=== PATIENT | male | born 1965 | race Caucasian/White ===

== ENCOUNTER 2022-10-13 22:47 | Inpatient (IN) ==
[2022-10-13] MEDS ORDERED: IPRATROPIUM/ALBUTEROL 3 ML AMPUL.NEB NEB ONE (23:03)
[2022-10-13] MEDS ORDERED: ALBUTEROL SULFATE 2.5 MG/3 ML NEBULIZER NEB ONE (23:03)
--- NOTE | 2022-10-13 23:07 | Emergency Department Note ---
HPI General Chief complaint: Shortness of Breath/Dyspnea Stated complaint: COPD exacerbation Time Seen by Provider: 10/13/22 23:03 Mode of arrival: ambulatory History of Present Illness HPI Narrative: Narrative: Patient is a 57-year-old male with a history significant for COPD, type 2 diabetes, and CHF who presents to the emergency department due to shortness of breath. EMS states that they gave 3 DuoNeb's without any significant improvement. Patient states that he feels that he may have had mild improvement with this. He states that he noticed the most improvement with CPAP. He states that he has had increasing shortness of breath over the last few days. He endorses worsening shortness of breath with activity, lying flat, and states that he wakes up feeling short of breath. He endorses cough. He denies any other symptoms at this time. Related Data Home Medications Medication Instructions Recorded Confirmed aspirin 81 mg tablet,delayed 81 mg PO QDAY 10/04/20 07/24/22 release (Adult Low Dose Aspirin) buspirone 5 mg tablet 5 mg PO BID 10/04/20 07/24/22 ezetimibe 10 mg tablet 10 mg PO QDAY 10/04/20 07/24/22 fluticasone 500 mcg-salmeterol 50 1 inh inhalation BID 10/04/20 07/24/22 mcg/dose blistr powdr for inhalation (Advair Diskus) lisinopril 20 mg tablet 20 mg PO QDAY 10/04/20 07/24/22 metoprolol tartrate 25 mg tablet 25 mg PO QDAY 10/04/20 07/24/22 nitroglycerin 0.4 mg sublingual 0.4 mg sublingual Q5M PRN 10/04/20 07/24/22 tablet (Nitrostat) allopurinol 300 mg tablet 300 mg PO QDAY 12/22/21 07/24/22 atorvastatin 80 mg tablet 80 mg PO QDAY 12/22/21 07/24/22 chlorthalidone 25 mg tablet 25 mg PO QDAY 12/22/21 07/24/22 famotidine 20 mg tablet 20 mg PO BID 12/22/21 07/24/22 latanoprost 0.005 % eye drops 1 drp ophthalmic (eye) QDAY 12/22/21 07/24/22 potassium chloride 10 mEq 10 meq PO QDAY 12/22/21 07/24/22 tablet,extended release sertraline 200 mg capsule 200 mg PO QDAY 12/22/21 07/24/22 timolol 0.5 % eye drops 1 drp ophthalmic (eye) BID 12/22/21 07/24/22 albuterol sulfate 90 mcg/actuation 2 puff inhalation Q6H PRN 05/29/22 07/24/22 aerosol inhaler furosemide 20 mg tablet 40 mg PO QDAY 05/29/22 07/24/22 gabapentin 300 mg capsule 300 mg PO BID 05/29/22 07/24/22 lisinopril 40 mg tablet 40 mg PO QDAY 05/29/22 07/24/22 metformin 500 mg tablet,extended 1,000 mg PO BID 05/29/22 07/24/22 release 24hr metoprolol succinate 50 mg 25 mg PO QDAY 05/29/22 07/24/22 tablet,extended release 24 hr multivitamin 1 tab PO QDAY 05/29/22 07/24/22 omeprazole 20 mg capsule,delayed 20 mg PO QDAY 05/29/22 07/24/22 release sertraline 100 mg tablet 200 mg PO QDAY 05/29/22 07/24/22 tamsulosin 0.4 mg capsule 0.4 mg PO QAM 05/29/22 07/24/22 cholestyramine-aspartame 4 gram PO 07/03/22 07/24/22 oral powder (Cholestyramine Light) liraglutide 0.6 mg/0.1 mL (18 mg/3 mg subcut 07/03/22 07/24/22 mL) subcutaneous pen injector (Victoza 3-Thomas) Allergies Allergy/AdvReac Type Severity Reaction Status Date / Time Influenza Virus Vaccines Allergy Hives Verified 07/24/22 16:52 Review of Systems ROS ROS Narrative: Narrative: Constitutional: Denies fever or weakness Eyes: Denies eye pain or vision change ENT ED: Reports rhinorrhea; Denies throat pain Cardiovascular: Reports dyspnea on exertion, orthopnea and edema; Denies chest pain Respiratory: Reports shortness of breath and cough Gastrointestinal: Denies abdominal pain, nausea, vomiting, diarrhea, constipation, hematochezia or melena Genitourinary: Denies dysuria or frequency Musculoskeletal: Denies back pain or myalgia Integumentary: Denies rash or lesions Neurological: Denies headache, weakness, numbness, confusion, abnormal gait or dizziness Endocrine: Denies fatigue or polyuria Hematological/Lymphatic: Denies easy bleeding or easy bruising PFS Narrative Patient History Narrative: Narrative: Medical/Surgical/Family History All Active Problems (Updated 10/14/22 @ 02:33 by Harpreet Jang MD) CHF exacerbation (Acute) COPD exacerbation (Acute) Nephrotic range proteinuria (Chronic) Restrictive lung disease (Chronic) Hypersomnia (Chronic) Mild mitral valve regurgitation (Chronic) 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) Body mass index exceeds 40 (Chronic) Hyperglycemia (Chronic) Edema of lower extremity (Chronic) Collagenous colitis (Chronic) Ascending aorta dilatation (Chronic) 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) Coronary arteriosclerosis (Chronic) LINDSEY (obstructive sleep apnea) (Chronic) Right wrist pain (Chronic) Cyst of kidney, acquired (Chronic) Sleep apnea (Chronic) Lesion of skin of face (Chronic) Periapical abscess (Chronic) Bradycardia (Chronic) Recent myocardial infarction (Chronic) Essential hypertension (Chronic) Bilateral hearing loss (Chronic) Eczema of external auditory canal (Chronic) Carpal tunnel syndrome (Chronic) Tobacco dependence syndrome (Chronic) Seasonal affective disorder (Chronic) Gout (Chronic) Hyperlipidemia (Chronic) Candidiasis (Chronic) Onychomycosis (Chronic) Cervical spondylosis (Chronic) History of surgery (Chronic) Heart disease (Chronic) Obesity (Chronic) COPD (chronic obstructive pulmonary disease) (Chronic) Metabolic syndrome (Chronic) GERD (gastroesophageal reflux disease) (Chronic) Depression (Chronic) Presence of coronary angioplasty implant and graft (Chronic) Old myocardial infarction (Chronic ~12/2013) Low back pain (Chronic) Pain in left leg (Chronic) Chronic pain (Chronic) Radiculopathy, lumbar region (Chronic) Carbuncle and furuncle (Chronic) Chronic low back pain (Chronic) Sciatica (Chronic) Medical History (Updated 10/14/22 @ 02:33 by Harpreet Jang MD) Ascending aorta dilatation Bilateral hearing loss Body mass index exceeds 40 Bradycardia Candidiasis Carbuncle and furuncle Carpal tunnel syndrome Cervical spondylosis Chronic combined systolic and diastolic heart failure Chronic low back pain Chronic pain Collagenous colitis COPD (chronic obstructive pulmonary disease) Coronary arteriosclerosis Cyst of kidney, acquired Depression Dyslipidemia due to type 2 diabetes mellitus Eczema of external auditory canal Edema of lower extremity Essential hypertension GERD (gastroesophageal reflux disease) Gout Heart disease Hyperglycemia Hyperlipidemia Hypersomnia Lesion of skin of face Low back pain Metabolic syndrome Mild mitral valve regurgitation Nephrotic range proteinuria Obesity Old myocardial infarction (~12/2013) Onychomycosis LINDSEY (obstructive sleep apnea) Pain in left leg Periapical abscess Radiculopathy, lumbar region Recent myocardial infarction Restrictive lung disease Right wrist pain Sciatica Seasonal affective disorder Sleep apnea Tobacco dependence syndrome Surgical History (Updated 10/01/22 @ 13:41 by Josiane Kennedy) History of cardiac catheterization History of carpal tunnel surgery (11/28/20) History of heart artery stent x2 History of surgery TF JIMBO #3 Lt L4-5 w/o sed 04/09/1802/26 TF JIMBO #2 Lt L4-5 w/o sed 02/12/1812/29 TF JIMBO #1 Left L4-5 w/o sed 12/19/1708/27 TF JIMBO #3 Lt L4-5 w/o sed 08/28/1707/28 TF JIMBO #2 Left L4-5 w/o sed 08/08/201706/27 TF JIMBO #1 Left L4-5 w/o sed 06/17/201702/25 TF JIMBO #3 L4-5, left 6\\" needle w/o sed 02/11/201712/28 LESI #2 L4-5 w/o sed 12/31/201611/27 LESI #1 L4-5 w/o sed 12/10/2016 Presence of coronary angioplasty implant and graft Family History (Updated 10/01/22 @ 13:35 by Josiane Kennedy) Other Adopted No pertinent family history Social History Smoking Status: Current every day smoker Alcohol Intake Frequency: holiday/special occasion only Substance Use: does not use Exam Narrative Narrative: Narrative: General General appearance: Present alert and in no apparent distress; Absent anxious, appears intoxicated or sleepy Head Head: Present atraumatic and normocephalic Eye Eye: Present EOMI; Absent scleral icterus or nystagmus ENT ENT: Present mucous membranes moist; Absent nasal congestion Neck Neck: Present full ROM; Absent tenderness Chest Chest: Present normal inspection and symmetric chest wall rise; Absent tenderness Respiratory Respiratory: Present decreased breath sounds; Absent respiratory distress, ral es/crackles, wheezes, stridor or accessory muscle use Cardiovascular Cardiovascular: Present regular rate, normal rhythm and normal heart sounds Adbominal Abdominal: Present soft and normal bowel sounds; Absent distention or tenderness Extremities Extremities: Present normal inspection, full ROM, pedal edema and pretibial edema; Absent tenderness or calf tenderness Back Back: Present normal inspection and full ROM Neurological Neurological: Present alert and oriented X3 Psychiatric Psychiatric: Present normal affect and normal mood Skin Skin: Present warm (WNL), dry and normal color Course Vital Signs Vital signs: Vital Signs Temperature 98.0 F 10/13/22 23:09 Pulse Rate 65 10/13/22 23:09 Respiratory Rate 97 H 10/13/22 23:09 Blood Pressure 177/90 10/13/22 23:09 Pulse Oximetry (%) 97 10/13/22 23:09 Oxygen Delivery Method 10/13/22 23:09 Temperature 98.0 F 10/13/22 23:09 Pulse Rate 63 10/14/22 02:01 Respiratory Rate 18 10/14/22 02:01 Blood Pressure 154/115 10/14/22 02:01 Pulse Oximetry (%) 91 10/14/22 02:01 Oxygen Delivery Method 10/13/22 23:09 MDM MDM Narrative Medical decision making narrative: Narrative: Patient is a 57-year-old male who presents to the emergency department due to shortness of breath. Differential diagnoses include COPD exacerbation, CHF exacerbation, pneumonia, COVID-19 or influenza, other viral infection. Patient's influenza and COVID swab is negative. Chest x-ray demonstrates pulmonary edema concerning for CHF exacerbation. Patient's decrease in breath sounds at the bases are consistent with this or COPD exacerbation. Patient did receive a prolonged DuoNeb, and did have some improvement with this consistent with COPD exacerbation. Patient has received antibiotics and steroid. Patient is also received Lasix. Patient was placed on BiPAP immediately upon arrival to the emergency department, but we soon after trialed nasal cannula, patient began to have increased work of breathing and borderline O2 sats. BiPAP was replaced, but after prolonged DuoNeb we again trialed nasal cannula. Patient was unable to tolerate laying down, but wanted to continue to try nasal cannula. I suspect the patient will again require BiPAP when he tries to sleep overnight. I spoke to Dr. Cheung about this patient and he agreed with an admission. ED transition orders have been placed. Lab Data Result diagrams: 10/13/22 23:30 Labs: Lab Results 10/13/22 10/13/22 10/13/22 Range/Units 23:07 23:08 23:14 WBC (4.5-11.0) K/mcL RBC (4.63-6.08) M/mcL Hgb (13.7-17.5) g/dL Hct (40.1-51.0) % POC Hct 44.0 (41-55) MCV (80.0-100.0) fL MCH (26.0-34.0) pg MCHC (31.0-36.0) g/dL RDW (11.5-14.5) % Plt Count (140-440) K/mcL MPV (8.8-12.5) fL Immature Gran % (Auto) (0.0-0.5) % Neut % (Auto) (38.0-78.0) % Lymph % (Auto) (15.5-49.0) % [place] % (Auto) (1.0-12.0) % Eos % (Auto) (0.0-7.0) % Baso % (Auto) (0.0-2.0) % Lymph # (Auto) (1.50-4.80) K/mcL [place] # (Auto) (0.10-0.90) K/mcL Eos # (Auto) (0.00-0.70) K/mcL Baso # (Auto) (0.00-0.30) K/mcL Immature Gran # (0.00-0.05) K/mcl Absolute Neutrophils (1.80-8.00) K/mcL POC VBG pH 7.37 (7.32-7.42) POC VBG pCO2 at Temp 52.1 H (41-51) POC VBG pO2 71 H (25-40) POC VBG HCO3 30.3 H (24-28) POC VBG Total CO2 32.0 H (25-29) POC Venous O2 Sat 93.0 H (40-70) POC VBG Base Excess 5.0 H* (-2-2) VBG Lactic Acid 0.8 (0.5-2) POC Sodium 141 (133-145) POC Potassium 3.5 (3.3-5.1) POC Chloride 103 (96-108) POC Total CO2 30.0 (22-30) POC BUN 13 (6-20) POC Creatinine 1.1 (0.6-1.2) POC Glucose 94 (70-105) POC WB Ioniz Calcium 1.16 (1.16-1.32) NT-Pro-B Natriuret Pep (<125.0) pg/mL POC Troponin I < 0.02 (0.00-0.08) 10/13/22 10/13/22 Range/Units 23:30 23:46 WBC 7.8 (4.5-11.0) K/mcL RBC 4.68 (4.63-6.08) M/mcL Hgb 14.4 (13.7-17.5) g/dL Hct 43.0 (40.1-51.0) % POC Hct (41-55) MCV 91.9 (80.0-100.0) fL MCH 30.8 (26.0-34.0) pg MCHC 33.5 (31.0-36.0) g/dL RDW 14.4 (11.5-14.5) % Plt Count 178 (140-440) K/mcL MPV 12.8 H (8.8-12.5) fL Immature Gran % (Auto) 0.3 (0.0-0.5) % Neut % (Auto) 65.6 (38.0-78.0) % Lymph % (Auto) 22.4 (15.5-49.0) % [place] % (Auto) 7.3 (1.0-12.0) % Eos % (Auto) 3.8 (0.0-7.0) % Baso % (Auto) 0.6 (0.0-2.0) % Lymph # (Auto) 1.76 (1.50-4.80) K/mcL [place] # (Auto) 0.57 (0.10-0.90) K/mcL Eos # (Auto) 0.30 (0.00-0.70) K/mcL Baso # (Auto) 0.05 (0.00-0.30) K/mcL Immature Gran # 0.02 (0.00-0.05) K/mcl Absolute Neutrophils 5.14 (1.80-8.00) K/mcL POC VBG pH (7.32-7.42) POC VBG pCO2 at Temp (41-51) POC VBG pO2 (25-40) POC VBG HCO3 (24-28) POC VBG Total CO2 (25-29) POC Venous O2 Sat (40-70) POC VBG Base Excess (-2-2) VBG Lactic Acid (0.5-2) POC Sodium (133-145) POC Potassium (3.3-5.1) POC Chloride (96-108) POC Total CO2 (22-30) POC BUN (6-20) POC Creatinine (0.6-1.2) POC Glucose (70-105) POC WB Ioniz Calcium (1.16-1.32) NT-Pro-B Natriuret Pep 924.9 H (<125.0) pg/mL POC Troponin I (0.00-0.08) ED POC Tests ED POC Tests: LUCRETIA - Influenza A Negative [place]IA - Influenza B Negative [place] - SARS Antigen Negative EKG Data EKG #1: EKG attestation: Yes I reviewed and interpreted this EKG. EKG results narrative: Normal sinus rhythm with a rate of 62, left axis deviation, AK 196, QRS of 123, QTc of 497, T wave inversion in lead aVL, absence of ST elevation or depression, and multiple PVCs. Discharge Plan Patient/Caregiver Discharge Instructions Pt seen by BOAT TESTER/PA only: No Clinical Impression: CHF exacerbation, COPD exacerbation Patient Disposition: Xfer As Inpt ([facility]) Condition: Critical Follow up with: Samira Mancia PA-C [Primary Care Provider] - Prescriptions: No Action ezetimibe 10 mg tablet 10 mg PO QDAY lisinopril 20 mg tablet 20 mg PO QDAY aspirin [Adult Low Dose Aspirin] 81 mg tablet,delayed release (DR/EC) 81 mg PO QDAY metoprolol tartrate 25 mg tablet 25 mg PO QDAY buspirone 5 mg tablet 5 mg PO BID fluticasone propion-salmeterol [Advair Diskus] 500-50 mcg/dose blister with device 1 inh INHALATION BID nitroglycerin [Nitrostat] 0.4 mg tablet, sublingual 0.4 mg SUBLINGUAL Q5M PRN Rx Instructions: do not exceed 3 doses per episode albuterol sulfate 90 mcg/actuation HFA aerosol inhaler 2 puff inhalation Q6H PRN gabapentin 300 mg capsule 300 mg PO BID lisinopril 40 mg tablet 40 mg PO QDAY metoprolol succinate 50 mg tablet extended release 24 hr 25 mg PO QDAY multivitamin Tablet 1 tab PO QDAY omeprazole 20 mg capsule,delayed release(DR/EC) 20 mg PO QDAY sertraline 100 mg tablet 200 mg PO QDAY allopurinol 300 mg tablet 300 mg PO QDAY atorvastatin 80 mg tablet 80 mg PO QDAY chlorthalidone 25 mg tablet 25 mg PO QDAY famotidine 20 mg tablet 20 mg PO BID latanoprost 0.005 % drops 1 drp ophthalmic (eye) QDAY potassium chloride 10 mEq tablet extended release 10 meq PO QDAY sertraline 200 mg capsule 200 mg PO QDAY timolol 0.5 % drops 1 drp ophthalmic (eye) BID furosemide 20 mg tablet 40 mg PO QDAY metformin 500 mg tablet extended release 24hr 1,000 mg PO BID tamsulosin 0.4 mg capsule 0.4 mg PO QAM Cholestyramine Light 4 gram powder PO Victoza 3-Thomas 0.6 mg/0.1 mL (18 mg/3 mL) pen injector subcut
[2022-10-13 23:12] LABS: POC Calcium, Ionized 1.16 (1.16-1.32); POC Creatinine 1.1 (0.6-1.2); POC Potassium 3.5 (3.3-5.1)
[2022-10-13] MEDS ORDERED: DEXAMETHASONE 10 MG/ML VIAL IV ONE (23:15)
[2022-10-13] MEDS ORDERED: AZITHROMYCIN 500 MG in DEXTROSE 5% IN WATER 250 ML IV ONE (23:40)
[2022-10-13] MEDS ORDERED: cefTRIAXone 1 GM VIAL IV ONE (23:40)
[2022-10-14 00:26] LABS: Basophils # (Auto) 0.05 K/mcL (0.00-0.30); Basophils % (Auto) 0.6 % (0.0-2.0); Eosinophils % (Auto) 3.8 % (0.0-7.0); Hemoglobin 14.4 g/dL (13.7-17.5); Lymphocytes # (Auto) 1.76 K/mcL (1.50-4.80); Lymphocytes % (Auto) 22.4 % (15.5-49.0); Mean Cell Volume 91.9 fL (80.0-100.0); Mean Corpuscular HGB Conc 33.5 g/dL (31.0-36.0); Mean Platelet Volume 12.8 fL (8.8-12.5); Monocytes # (Auto) 0.57 K/mcL (0.10-0.90); Monocytes % (Auto) 7.3 % (1.0-12.0); Neutrophils % (Auto) 65.6 % (38.0-78.0); Platelet Count 178 K/mcL (140-440); RBC 4.68 M/mcL (4.63-6.08); Red Cell Distribution Width 14.4 % (11.5-14.5); WBC 7.8 K/mcL (4.5-11.0)
[2022-10-14] MEDS ORDERED: FUROSEMIDE 100 MG/10 ML VIAL IV ONE (01:27)
[2022-10-14] MEDS ORDERED: ONDANSETRON 4 MG/2 ML VIAL IV ONE (02:09)
--- NOTE | 2022-10-14 06:05 | XRay Report ---
INDICATION: SOB TECHNIQUE: AP portable upright chest x-ray COMPARISON: Previous chest x-ray dated 12/02/2013 FINDINGS: There is marked cardiomegaly and prominent vascularity. Peribronchial thickening. Appearance consistent with interstitial pulmonary edema. No focal pulmonary parenchymal consolidation. No focal abnormality. No definite pleural effusions identified on this AP chest x-ray IMPRESSION: Cardiomegaly and findings consistent with congestive heart failure Interpreted and Authenticated by: Trung Hale 10/14/22
--- NOTE | 2022-10-14 07:52 | Internal Med History&Physical ---
HPI History of Present Illness Patient information: Note initiated : 10/14/22 at 7:51 am Service Date, if different from initiated Date: [] Patient: Preston Wells a 57 y/o M admitted on 10/14/22 for COPD exacerbation. Chief Complaint: [] History of present illness: Mr. Wells is a 57 year old M Presents ED with dyspnea. By EMS is given duo nebs as well as duo nebs in the ED. Subsequently required CPAP BiPAP. Further work-up revealed the suspected CHF and that the patient was given IV Lasix. Patient reports increasing shortness of breath the past 3-4 days worsened by activities laying flat, orthopnea. Also describes paroxysmal nocturnal dyspnea. Denies any increased salt in his diet or sick contacts. Patient states his typical weight is around 395. Patient states he has cough productive of white sputum occasionally bloody sputum also frothy component. COVID swab was negative. Review of Systems: Pertinent positives as above. Denies headache/fever/chills/nausea/vomiting/chest or abdominal pain/diarrhea. 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) Coronary arteriosclerosis (Chronic) LINDSEY (obstructive sleep apnea) (Chronic) Right wrist pain (Chronic) Cyst of kidney, acquired (Chronic) Sleep apnea (Chronic) Lesion of skin of face (Chronic) Periapical abscess (Chronic) Bradycardia (Chronic) Recent myocardial infarction (Chronic) Essential hypertension (Chronic) Bilateral hearing loss (Chronic) Eczema of external auditory canal (Chronic) Carpal tunnel syndrome (Chronic) Tobacco dependence syndrome (Chronic) Seasonal affective disorder (Chronic) Gout (Chronic) Hyperlipidemia (Chronic) Candidiasis (Chronic) Onychomycosis (Chronic) Cervical spondylosis (Chronic) History of surgery (Chronic) Heart disease (Chronic) Obesity (Chronic) COPD (chronic obstructive pulmonary disease) (Chronic) Metabolic syndrome (Chronic) GERD (gastroesophageal reflux disease) (Chronic) Depression (Chronic) Presence of coronary angioplasty implant and graft (Chronic) Old myocardial infarction (Chronic ~12/2013) Low back pain (Chronic) Pain in left leg (Chronic) Chronic pain (Chronic) Radiculopathy, lumbar region (Chronic) Carbuncle and furuncle (Chronic) Chronic low back pain (Chronic) Sciatica (Chronic) Medical History (Updated 10/14/22 @ 02:33 by Harpreet Jang MD) Ascending aorta dilatation Bilateral hearing loss Body mass index exceeds 40 Bradycardia Candidiasis Carbuncle and furuncle Carpal tunnel syndrome Cervical spondylosis Chronic combined systolic and diastolic heart failure Chronic low back pain Chronic pain Collagenous colitis COPD (chronic obstructive pulmonary disease) Coronary arteriosclerosis Cyst of kidney, acquired Depression Dyslipidemia due to type 2 diabetes mellitus Eczema of external auditory canal Edema of lower extremity Essential hypertension GERD (gastroesophageal reflux disease) Gout Heart disease Hyperglycemia Hyperlipidemia Hypersomnia Lesion of skin of face Low back pain Metabolic syndrome Mild mitral valve regurgitation Nephrotic range proteinuria Obesity Old myocardial infarction (~12/2013) Onychomycosis LINDSEY (obstructive sleep apnea) Pain in left leg Periapical abscess Radiculopathy, lumbar region Recent myocardial infarction Restrictive lung disease Right wrist pain Sciatica Seasonal affective disorder Sleep apnea Tobacco dependence syndrome Surgical History (Updated 10/01/22 @ 13:41 by Josiane Kennedy) History of cardiac catheterization History of carpal tunnel surgery (11/28/20) History of heart artery stent x2 History of surgery TF JIMBO #3 Lt L4-5 w/o sed 04/09/1802/26 TF JIMBO #2 Lt L4-5 w/o sed 02/12/1812/29 TF JIMBO #1 Left L4-5 w/o sed 12/19/1708/27 TF JIMBO #3 Lt L4-5 w/o sed 08/28/1707/28 TF JIMBO #2 Left L4-5 w/o sed 08/08/201706/27 TF JIMBO #1 Left L4-5 w/o sed 06/17/201702/25 TF JIMBO #3 L4-5, left 6\\" needle w/o sed 02/11/201712/28 LESI #2 L4-5 w/o sed 12/31/201611/27 LESI #1 L4-5 w/o sed 12/10/2016 Presence of coronary angioplasty implant and graft Family History (Updated 10/01/22 @ 13:35 by Josiane Kennedy) Other Adopted No pertinent family history Social History (Updated 10/01/22 @ 13:38 by Josiane Kennedy) adopted: Yes household members: alone lives independently: Yes marital status: single occupational status: retired and disabled sexually active: No physical activity: none smoking status: Current some day smoker alcohol intake frequency: holiday/special occasion only substance use type: does not use seatbelt use: always working smoke detector in home: Yes carbon monox detector in home: Yes firearms in home: Yes additional history: patient smokes 1-1.5 ppd for around 40 years as of 06/2022 MEDS/ALLERGIES Home Medications and Allergies Home Medications Medication Instructions Recorded Confirmed Type buspirone 5 mg tablet 5 mg PO BID 10/04/20 10/14/22 History ezetimibe 10 mg tablet 10 mg PO QDAY 10/04/20 10/14/22 History fluticasone 500 mcg-salmeterol 50 1 inh inhalation BID 10/04/20 10/14/22 History mcg/dose blistr powdr for inhalation (Advair Diskus) nitroglycerin 0.4 mg sublingual 0.4 mg sublingual Q5M PRN 10/04/20 10/14/22 History tablet (Nitrostat) Shortness Of Breath allopurinol 300 mg tablet 300 mg PO QDAY 12/22/21 10/14/22 History atorvastatin 80 mg tablet 80 mg PO QDAY 12/22/21 10/14/22 History famotidine 20 mg tablet 20 mg PO BID 12/22/21 10/14/22 History latanoprost 0.005 % eye drops 1 drp ophthalmic (eye) QDAY 12/22/21 10/14/22 History potassium chloride 10 mEq 10 meq PO QDAY 12/22/21 10/14/22 History tablet,extended release timolol 0.5 % eye drops 1 drp ophthalmic (eye) BID 12/22/21 10/14/22 History albuterol sulfate 90 mcg/actuation 2 puff inhalation Q6H PRN 05/29/22 10/14/22 History aerosol inhaler Shortness of breath furosemide 20 mg tablet 40 mg PO QDAY 05/29/22 10/14/22 History gabapentin 300 mg capsule 300 mg PO BID 05/29/22 10/14/22 History lisinopril 40 mg tablet 40 mg PO QDAY 05/29/22 10/14/22 History metformin 500 mg tablet,extended 1,000 mg PO BID 05/29/22 10/14/22 History release 24hr metoprolol succinate 50 mg 25 mg PO QDAY 05/29/22 10/14/22 History tablet,extended release 24 hr multivitamin 1 tab PO QDAY 05/29/22 10/14/22 History omeprazole 20 mg capsule,delayed 20 mg PO QDAY 05/29/22 10/14/22 History release cholestyramine-aspartame 4 gram 1 ea PO DAILY 07/03/22 10/14/22 History oral powder (Cholestyramine Light) liraglutide 0.6 mg/0.1 mL (18 mg/3 mg subcut 07/03/22 07/24/22 History mL) subcutaneous pen injector (Victoza 3-Thomas) budesonide 3 mg 3 cap PO QDAY 10/14/22 10/14/22 History capsule,delayed,extended release hydrocodone 5 mg-acetaminophen 325 1 tab PO Q4HP PRN Pain 10/14/22 10/14/22 History mg tablet sertraline 100 mg tablet 2 tab PO QAM 10/14/22 10/14/22 History Allergies Allergy/AdvReac Type Severity Reaction Status Date / Time Influenza Virus Vaccines Allergy Hives Verified 10/14/22 04:58 EXAM Constitutional Vitals: Temp Pulse Resp BP Pulse Ox O2 Del Method O2 Flow Rate 97 F 59 L 25 H 150/94 94 4 10/14/22 04:00 10/14/22 04:19 10/14/22 04:19 10/14/22 04:10 10/14/22 04:19 10/14/22 04:00 10/14/22 04:00 Exam: General: Alert, Awake, No acute Distress Eyes/N/T: EOMI, PERRL, Head/Neck: neck supple, normocephalic atraumatic CV: RRR, 2/6 SM, normal s1/s2 Pulm: Diminished severely b/l, mild rales b/l Abd: soft, nontender, +BS x4 Ext: no clubbing/cyanosis, 2-3+ b/l LE edema Neuro: Alert, no focal deficits, moves all extremities, CN 2-12 grossly intact, sensations intact b/l upper/lower Skin: warm/dry DATA Data Completed and Pending Labs: Labs from last 24 hours 10/13/22 10/13/22 10/13/22 23:46 23:30 23:14 WBC 7.8 RBC 4.68 Hgb 14.4 Hct 43.0 POC Hct MCV 91.9 MCH 30.8 MCHC 33.5 RDW 14.4 Plt Count 178 MPV 12.8 H Immature Gran % (Auto) 0.3 Neut % (Auto) 65.6 Lymph % (Auto) 22.4 [place]eman % (Auto) 7.3 Eos % (Auto) 3.8 Baso % (Auto) 0.6 Lymph # (Auto) 1.76 [place] # (Auto) 0.57 Eos # (Auto) 0.30 Baso # (Auto) 0.05 Immature Gran # 0.02 Absolute Neutrophils 5.14 POC VBG pH 7.37 POC VBG pCO2 at Temp 52.1 H POC VBG pO2 71 H POC VBG HCO3 30.3 H POC VBG Total CO2 32.0 H POC Venous O2 Sat 93.0 H POC VBG Base Excess 5.0 H* VBG Lactic Acid 0.8 POC Sodium POC Potassium POC Chloride POC Total CO2 POC BUN POC Creatinine POC Glucose POC WB Ioniz Calcium NT-Pro-B Natriuret Pep 924.9 H POC Troponin I 10/13/22 10/13/22 23:08 23:07 WBC RBC Hgb Hct POC Hct 44.0 MCV MCH MCHC RDW Plt Count MPV Immature Gran % (Auto) Neut % (Auto) Lymph % (Auto) [place] % (Auto) Eos % (Auto) Baso % (Auto) Lymph # (Auto) [place] # (Auto) Eos # (Auto) Baso # (Auto) Immature Gran # Absolute Neutrophils POC VBG pH POC VBG pCO2 at Temp POC VBG pO2 POC VBG HCO3 POC VBG Total CO2 POC Venous O2 Sat POC VBG Base Excess VBG Lactic Acid POC Sodium 141 POC Potassium 3.5 POC Chloride 103 POC Total CO2 30.0 POC BUN 13 POC Creatinine 1.1 POC Glucose 94 POC WB Ioniz Calcium 1.16 NT-Pro-B Natriuret Pep POC Troponin I < 0.02 A/P Narrative A/P Narrative: A: *Acute hypoxic/hypercapnic respiratory failure: 2/2 chf *Acute on likely chronic CHF w/pulmonary edema: *COPD(not on home O2)/RLD: *LINDSEY: *morbid Obesity: bmi 52 *HTN/HLD: *DM w/Neuropathy: *GERD: *Depression: *Tobacco abuse: P: -O2 Supp, as needed BiPAP, wean as able -IV lasix, aldactone -monitor i/o,weights -Monitor replace electrolytes -cont home IH's, IS -SSI -cont home mic/bb -echo -PT/OT -Smoking cessation counseling >3 minutes -CM for placement needs -ppx: Lovenox / home H2 Time Spent With Patient Time: Total time spent is greater than 50% in coordination of care (as documented) at patient's floor/unit and/or counseling patient: Total time spent with greater than 50% in coordination of care (as documented) at patient's floor/unit and/or counseling patient:: Greater than 70 minutes
[2022-10-14] MEDS ORDERED: NITROGLYCERIN 0.4 MG TAB.SUBL SL PRN (08:01)
[2022-10-14] MEDS ORDERED: HYDROcodone/APAP 5/325MG TABLET PO PRN (08:01)
[2022-10-14] MEDS ORDERED: SENNOSIDES 1 TABLET PO PRN (08:03)
[2022-10-14] MEDS ORDERED: MAGNESIUM SULFATE 2 GM/50 ML BAG IV PRN (08:03)
[2022-10-14] MEDS ORDERED: POTASSIUM CHLORIDE 40 MEQ in DEXTROSE 5% IN WATER 500 ML IV PRN (08:03)
[2022-10-14] MEDS ORDERED: DEXTROSE 50% 50 ML VIAL IV PRN (08:03)
[2022-10-14] MEDS ORDERED: hydrALAZINE 20 MG/ML VIAL IV PRN (08:03)
[2022-10-14] MEDS ORDERED: acetaZOLAMIDE SOD 500 MG VIAL IV ONE (08:03)
[2022-10-14] MEDS ORDERED: POTASSIUM CHLORIDE 20 MEQ TABLET PO PRN ×2 (08:03)
[2022-10-14] MEDS ORDERED: DEXTROSE 31 GM ORAL.SUSP PO PRN (08:03)
[2022-10-14] MEDS ORDERED: ONDANSETRON 4 MG/2 ML VIAL IV PRN (08:03)
[2022-10-14] MEDS ORDERED: ACETAMINOPHEN 325 MG TABLET PO PRN (08:03)
[2022-10-14] MEDS ORDERED: POLYETHYLENE GLYCOL 3350 17 GM PACKET PO PRN (08:03)
[2022-10-14] MEDS ORDERED: IPRATROPIUM/ALBUTEROL 3 ML AMPUL.NEB NEB PRN (08:03)
[2022-10-14 09:12] LABS: ALT/SGPT 15 U/L (<40); AST/SGOT 29 U/L (<40); Albumin 3.2 gm/dL (3.2-5.2); Albumin/Globulin Ratio 0.8 (1.0-2.3); Alkaline Phosphatase 130 U/L (39-117); Bilirubin,Direct < 0.2 mg/dL (0-0.3); Bilirubin,Total 0.7 mg/dL (0.1-1.0); Blood Urea Nitrogen 11 mg/dL (6-20); Calcium 9.3 mg/dL (8.6-10.4); Carbon Dioxide 27 mmol/L (22-30); Chloride 100 mmol/L (96-108); Globulin 4.2 gm/dL (2.2-3.7); Glomerular Filtration Rate 84; Glucose 147 mg/dL (70-105); Lactate Dehydrogenase 159 U/L (135-225); Phosphorous 2.9 mg/dL (2.5-4.5); Triglycerides 94 mg/dL (<150); Uric Acid 7.2 mg/dL (2.5-8.0)
[2022-10-14] MEDS: FLUTICASONE/SALMETEROL 500/50 INHALER #14 INH SCH ×2 (09:27→20:49)
[2022-10-14] MEDS: LATANOPROST OPHTH DROPS 2.5ML BOTTLE OU SCH (09:28)
[2022-10-14] MEDS: TIMOLOL 0.5% OPHTH DROPS BOTTLE 5ML OU SCH ×2 (09:28→20:49)
[2022-10-14] MEDS: CHOLESTYRAMINE/ASPARTAME 4 GM POWD.PACK PO SCH (09:37)
[2022-10-14] MEDS: ALLOPURINOL 300 MG TABLET PO SCH (09:38)
[2022-10-14] MEDS: FUROSEMIDE 40 MG/4 ML VIAL IV SCH ×2 (09:38→16:30)
[2022-10-14] MEDS: ATORVASTATIN 40 MG TABLET PO SCH (09:38)
[2022-10-14] MEDS: EZETIMIBE 10 MG TABLET PO SCH (09:38)
[2022-10-14] MEDS: LISINOPRIL 20 MG TABLET PO SCH (09:38)
[2022-10-14] MEDS: FAMOTIDINE 20 MG TABLET PO SCH ×2 (09:38→20:48)
[2022-10-14] MEDS: busPIRone 5 MG TABLET PO SCH ×2 (09:38→20:48)
[2022-10-14] MEDS: OMEPRAZOLE 20 MG CAPSULE PO SCH (09:39)
[2022-10-14] MEDS: ENOXAPARIN 40 MG/0.4 ML SYRINGE SQ SCH ×2 (09:39→20:48)
[2022-10-14] MEDS: DOCUSATE SODIUM 100 MG CAPSULE PO SCH ×3 (09:39→20:48)
[2022-10-14] MEDS: GABAPENTIN 300 MG CAPSULE PO SCH ×2 (09:39→20:48)
[2022-10-14] MEDS: BUDESONIDE 3 MG CAP.XL.24H PO SCH (10:35)
[2022-10-14] MEDS ORDERED: SPIRONOLACTONE 25 MG TABLET PO ONE (10:41)
[2022-10-14] MEDS ORDERED: HYDROCHLOROTHIAZIDE 25 MG TABLET PO ONE (10:45)
[2022-10-14] MEDS: INSULIN LISPRO 1 UNIT/0.01 ML UNIT SQ SCH ×3 (12:12→20:49)
[2022-10-14] MEDS: 0.9 % SODIUM CHLORIDE 10 ML SYRINGE IV SCH ×2 (14:37→20:50)
[2022-10-15] MEDS: 0.9 % SODIUM CHLORIDE 10 ML SYRINGE IV SCH (05:37)
[2022-10-15] MEDS: CHOLESTYRAMINE/ASPARTAME 4 GM POWD.PACK PO SCH (06:53)
[2022-10-15] MEDS: INSULIN LISPRO 1 UNIT/0.01 ML UNIT SQ SCH ×2 (06:53→12:01)
--- NOTE | 2022-10-15 07:43 | Internal Med Progress Note ---
SUBJECTIVE Subjective Patient information: Note initiated : 10/15/22 at 7:37 am Service Date, if different from initiated Date: [] Patient: Preston Wells a 57 y/o M admitted on 10/14/22 for COPD exacerbation. Chief Complaint: [] Interval history: History of present illness: Mr. Wells is a 57 year old M Presents ED with dyspnea. By EMS is given duo nebs as well as duo nebs in the ED. Subsequently required CPAP BiPAP. Further work-up revealed the suspected CHF and that the patient was given IV Lasix. Patient reports increasing shortness of breath the past 3-4 days worsened by activities laying flat, orthopnea. Also describes paroxysmal nocturnal dyspnea. Denies any increased salt in his diet or sick contacts. Patient states his typical weight is around 395. Patient states he has cough productive of white sputum occasionally bloody sputum also frothy component. COVID swab was negative. 10/15 Patient doing well. Now on room air. Good urine output. Patient does have appointment with his green house manager this afternoon was hoping to make it to that. Follow-up BMP much improved. Shortness of breath improved. Review of Systems: denies headache/fever/chills/nausea/vomiting/chest or abdominal pain/diarrhea. Otherwise see above. Constitutional Vitals: Vital Signs Temp Pulse Resp BP Pulse Ox O2 Del Method O2 Flow Rate 97.2 F 50 L 17 138/100 94 4 10/15/22 04:01 10/15/22 06:01 10/15/22 06:01 10/15/22 06:01 10/15/22 06:01 10/15/22 06:57 10/15/22 06:01 Period Temp Pulse Resp BP Sys/Schumacher Pulse Ox O2 Del Method O2 Flow Rate Last 24 Hr 96.7 F-97.2 F 50-70 14-26 128-164/69-105 63-98 BiPAP-Room Air 3-4 Intake and Output 10/14/22 10/15/22 10/15/22 19:59 03:59 11:59 Intake Total 1150 600 Output Total 3080 650 550 Balance -1930 -50 -550 Weight 174.497 kg Intake & Output: Intake & Output 10/14/22 10/15/22 10/15/22 19:59 03:59 11:59 Intake Total 1150 600 Output Total 3080 650 550 Balance -1930 -50 -550 Weight 174.497 kg Intake: Oral 1150 600 Output: Void Amount 3080 650 550 # of times incontinent of urine 0 Other: Meal Snack cheese stick x 2, egg salad x 2, crackers Percent of Meal Consumed 100% Feeding Ability Independent Urine Appearance Clear Clear Urine Color Yellow Pale Pale Urine Odor Normal Stool Size Large Stool Color Yellow Stool Consistency Formed # Voids 1 # Bowel Movements 1 # of times incontinent of 0 Bowels Exam: General: Alert, Awake, No acute Distress Eyes/N/T: EOMI, Head/Neck: neck supple, CV: RRR, 2/6 SM, Pulm: Diminished severely b/l, no wheezing Abd: soft, nontender, +BS x4 Ext: no clubbing/cyanosis, 2+ b/l LE edema Neuro: Alert, no focal deficits, moves all extremities, Skin: warm/dry OBJ DATA Labs CBC & Chem 7: 10/13/22 23:30 10/15/22 07:49 Labs: Abnormal Lab Results 10/14/22 10/14/22 10/13/22 08:24 08:24 23:46 MPV POC VBG pCO2 at Temp POC VBG pO2 POC VBG HCO3 POC VBG Total CO2 POC Venous O2 Sat POC VBG Base Excess Glucose 147 H GGT 73 H Alkaline Phosphatase 130 H NT-Pro-B Natriuret Pep 1245.0 H 924.9 H Globulin 4.2 H Albumin/Globulin Ratio 0.8 L Procalcitonin 0.11 H 10/13/22 10/13/22 23:30 23:14 MPV 12.8 H POC VBG pCO2 at Temp 52.1 H POC VBG pO2 71 H POC VBG HCO3 30.3 H POC VBG Total CO2 32.0 H POC Venous O2 Sat 93.0 H POC VBG Base Excess 5.0 H* Glucose GGT Alkaline Phosphatase NT-Pro-B Natriuret Pep Globulin Albumin/Globulin Ratio Procalcitonin Meds: Medications Acetaminophen (Acetaminophen 325 Mg Tablet) 650 mg PO Q6HP PRN; Protocol PRN Reason: Per Pain Protocol/Fever > 101 Hydrocodone Bitart/Acetaminophen (Hydrocodone/Apap 5/325mg Tablet) 1 tab PO Q4HP PRN; Protocol PRN Reason: Pain Albuterol/Ipratropium (Ipratropium/Albuterol 3 Ml Ampul.Neb) 3 ml NEB Q4HP PRN PRN Reason: Shortness Of Breath Allopurinol (Allopurinol 300 Mg Tablet) 300 mg PO QDAY [facility] Last Admin: 10/14/22 09:38 Dose: 300 mg Atorvastatin Calcium (Atorvastatin 40 Mg Tablet) 80 mg PO DAILY [facility] Last Admin: 10/14/22 09:38 Dose: 80 mg Budesonide (Budesonide 3 Mg Cap.Xl.24h) 9 mg PO DAILY [facility] Last Admin: 10/14/22 10:35 Dose: 9 mg Buspirone HCl (Buspirone 5 Mg Tablet) 5 mg PO BID [facility] Last Admin: 10/14/22 20:48 Dose: 5 mg Cholestyramine Resin (Cholestyramine/Aspartame 4 Gm Powd.Pack) 4 gm PO DAILY@0700 [facility] Last Admin: 10/15/22 06:53 Dose: 4 gm Dextrose (Dextrose 50% 50 Ml Vial) 0 ml IV UD PRN PRN Reason: Per Sliding Scale Diagnostic Test (Pha) (Accu-Chek 1 Each Strip) 1 each FS ACHS [facility] Last Admin: 10/15/22 06:53 Dose: 1 each Docusate Sodium (Docusate Sodium 100 Mg Capsule) 100 mg PO BID [facility] Last Admin: 10/14/22 20:48 Dose: 100 mg Ezetimibe (Ezetimibe 10 Mg Tablet) 10 mg PO QDAY [facility] Last Admin: 10/14/22 09:38 Dose: 10 mg Enoxaparin Sodium (Enoxaparin 40 Mg/0.4 Ml Syringe) 40 mg SQ BID [facility] Last Admin: 10/14/22 20:48 Dose: 40 mg Famotidine (Famotidine 20 Mg Tablet) 20 mg PO BID [facility] Last Admin: 10/14/22 20:48 Dose: 20 mg Furosemide (Furosemide 40 Mg/4 Ml Vial) 40 mg IV BIDD [facility] Last Admin: 10/14/22 16:30 Dose: 40 mg Gabapentin (Gabapentin 300 Mg Capsule) 300 mg PO BID [facility] Last Admin: 10/14/22 20:48 Dose: 300 mg Glucose (Dextrose 31 Gm Oral.Susp) 15 gm PO PRN PRN PRN Reason: Hypoglycemia Hydralazine HCl (Hydralazine 20 Mg/Ml Vial) 0 mg IV Q2HP PRN PRN Reason: Hypertension Last Admin: 10/14/22 17:30 Dose: 10 mg Potassium Chloride 40 meq/ (Dextrose) 520 mls @ 130 mls/hr IV UD PRN PRN Reason: Potassium < 3 Magnesium Sulfate (Magnesium Sulfate) 2 gm in 50 mls @ 50 mls/hr IV UD PRN PRN Reason: Magnesium </= 1.6 Insulin Human Lispro (Insulin Lispro 1 Unit/0.01 Ml Unit) 0 unit SQ ACHS [facility]; Protocol Last Admin: 10/15/22 06:53 Dose: Not Given Latanoprost (Latanoprost Ophth Drops 2.5ml Bottle) 1 gtt OU DAILY [facility] Last Admin: 10/14/22 09:28 Dose: Not Given Lisinopril (Lisinopril 20 Mg Tablet) 40 mg PO DAILY [facility] Last Admin: 10/14/22 09:38 Dose: 40 mg Metoprolol Succinate (Metoprolol Succinate 25 Mg Tab.Xl.24h) 25 mg PO DAILY [facility] Nitroglycerin (Nitroglycerin 0.4 Mg Tab.Subl) 0.4 mg SL Q5M PRN PRN Reason: Shortness Of Breath Omeprazole (Omeprazole 20 Mg Capsule) 20 mg PO ACB [facility] Last Admin: 10/14/22 09:39 Dose: 20 mg Ondansetron HCl (Ondansetron 4 Mg/2 Ml Vial) 4 mg IV Q4HP PRN PRN Reason: Nausea And Vomiting Polyethylene Glycol (Polyethylene Glycol 3350 17 Gm Packet) 17 gm PO DAILYP PRN PRN Reason: Constipation Potassium Chloride (Potassium Chloride 20 Meq Tablet) 40 meq PO UD PRN PRN Reason: Potssium is 3-3.5 Potassium Chloride (Potassium Chloride 20 Meq Tablet) 40 meq PO UD PRN PRN Reason: Potassium < 3 Fluticasone/Salmeterol (Fluticasone/Salmeterol 500/50 Inhaler #14) 1 puff INH BID [facility] Last Admin: 10/14/22 20:49 Dose: Not Given Senna (Sennosides 1 Tablet) 2 tab PO DAILYP PRN PRN Reason: Constipation Sertraline HCl (Sertraline 100 Mg Tablet) 200 mg PO DAILY [facility] Sodium Chloride (0.9 % Sodium Chloride 10 Ml Syringe) 10 ml IV Q8 [facility] Last Admin: 10/15/22 05:37 Dose: 10 ml Timolol Maleate (Timolol 0.5% Ophth Drops Bottle 5ml) 1 gtt OU BID [facility] Last Admin: 10/14/22 20:49 Dose: Not Given A/P Narrative A/P Narrative: A: *Acute hypoxic/hypercapnic respiratory failure: 2/2 chf -on room air this morning while awake *Acute on chronic systolic (45%)/diastolic CHF w/pulmonary edema: -good uop *COPD(not on home O2)/RLD: *LINDSEY: *morbid Obesity: bmi 52 *HTN/HLD: *DM w/Neuropathy: *GERD: *Depression: *Tobacco abuse: P: -O2 Supp wean as able -IV lasix bid, aldactone -monitor i/o,weights -Monitor replace electrolytes -cont home IH's, IS -SSI -cont home mic/bb -echo -PT/OT -Smoking cessation counseling -CM for placement needs -ppx: Lovenox / home H2 Time Spent With Patient Time: Total time spent is greater than 50% in coordination of care (as documented) at patient's floor/unit and/or counseling patient: Total time spent with greater than 50% in coordination of care (as documented) at patient's floor/unit and/or counseling patient:: 35 - 50 minutes
[2022-10-15] MEDS: FAMOTIDINE 20 MG TABLET PO SCH (08:22)
[2022-10-15] MEDS: ATORVASTATIN 40 MG TABLET PO SCH (08:22)
[2022-10-15] MEDS: LISINOPRIL 20 MG TABLET PO SCH (08:22)
[2022-10-15] MEDS: OMEPRAZOLE 20 MG CAPSULE PO SCH (08:22)
[2022-10-15] MEDS: DOCUSATE SODIUM 100 MG CAPSULE PO SCH (08:22)
[2022-10-15] MEDS: ALLOPURINOL 300 MG TABLET PO SCH (08:22)
[2022-10-15] MEDS: GABAPENTIN 300 MG CAPSULE PO SCH (08:22)
[2022-10-15] MEDS: EZETIMIBE 10 MG TABLET PO SCH (08:22)
[2022-10-15] MEDS: busPIRone 5 MG TABLET PO SCH (08:22)
[2022-10-15] MEDS: FUROSEMIDE 40 MG/4 ML VIAL IV SCH (08:23)
[2022-10-15] MEDS: ENOXAPARIN 40 MG/0.4 ML SYRINGE SQ SCH (08:23)
[2022-10-15] MEDS: FLUTICASONE/SALMETEROL 500/50 INHALER #14 INH SCH (08:23)
[2022-10-15 08:57] LABS: ALT/SGPT 14 U/L (<40); AST/SGOT 31 U/L (<40); Albumin 2.9 gm/dL (3.2-5.2); Albumin/Globulin Ratio 0.7 (1.0-2.3); Alkaline Phosphatase 116 U/L (39-117); Bilirubin,Direct < 0.2 mg/dL (0-0.3); Bilirubin,Total 0.6 mg/dL (0.1-1.0); Blood Urea Nitrogen 19 mg/dL (6-20); Calcium 9.3 mg/dL (8.6-10.4); Carbon Dioxide 25 mmol/L (22-30); Chloride 100 mmol/L (96-108); Globulin 4.2 gm/dL (2.2-3.7); Glomerular Filtration Rate 84; Glucose 143 mg/dL (70-105); Lactate Dehydrogenase 210 U/L (135-225); Phosphorous 3.9 mg/dL (2.5-4.5); Triglycerides 110 mg/dL (<150); Uric Acid 7.4 mg/dL (2.5-8.0); proBNP 768.9 pg/mL (<125.0)
[2022-10-15] MEDS ORDERED: SPIRONOLACTONE 25 MG TABLET PO SCH (09:00)
[2022-10-15] MEDS ORDERED: METOPROLOL SUCCINATE 25 MG TAB.XL.24H PO SCH (09:00)
[2022-10-15] MEDS ORDERED: SERTRALINE 100 MG TABLET PO SCH (09:00)
--- NOTE | 2022-10-15 09:09 | EKG ---
[facility] Test Date: 2022-10-13 Pat Name: Preston Wells Department: ED Room: Gender: Male Office Cleaner: VALORIE : 1965 Requested By: Harpreet Jang Order Number: [id number] Reading MD: Trung Krishna M.D. Measurements Intervals [place] Rate: 62 P: 29 MO: 196 QRS: -45 QRSD: 123 T: 81 QT: 477 QTc: 497 Interpretive Statements Sinus rhythm Multiform ventricular premature complexes Probable left atrial enlargement Nonspecific IVCD with LAD LVH with secondary repolarization abnormality Electronically Signed On 10-15-2022 9:09:34 PST by Trung Krishna M.D. /[id number]
[2022-10-15] MEDS: TIMOLOL 0.5% OPHTH DROPS BOTTLE 5ML OU SCH (09:10)
[2022-10-15] MEDS: LATANOPROST OPHTH DROPS 2.5ML BOTTLE OU SCH (09:11)
[2022-10-15] MEDS: BUDESONIDE 3 MG CAP.XL.24H PO SCH (09:31)
--- NOTE | 2022-10-15 09:55 | Discharge Summary ---
Discharge Provider Provider IMPORTANT FOLLOW-UP INFORMATION FOR PCP: Patient information: Note initiated : 10/15/22 at 9:53 am Service Date, if different from initiated Date: [] Patient: Preston Wells 57 y/o M admitted on 10/14/22 for COPD exacerbation. Chief Complaint: [] Date of admission: 10/14/22 03:33 Discharge date: 10/15/22 Primary care physician: Samira Mancia PA-C Consults: 10/14/22 Consult to Physician [CONS] Stat Comment: Consulting Provider: Juan Cheung Reason For Exam: Physician to Consult COURSE Hospital Course Hospital course: History of present illness: Mr. Wells is a 57 year old M Presents ED with dyspnea. By EMS is given duo nebs as well as duo nebs in the ED. Subsequently required CPAP BiPAP. Further work-up revealed the suspected CHF and that the patient was given IV Lasix. Patient reports increasing shortness of breath the past 3-4 days worsened by activities laying flat, orthopnea. Also describes paroxysmal nocturnal d yspnea. Denies any increased salt in his diet or sick contacts. Patient states his typical weight is around 395. Patient states he has cough productive of white sputum occasionally bloody sputum also frothy component. COVID swab was negative. 10/15 Patient doing well. Now on room air. Good urine output. Patient does have appointment with his embalmer/funeral director this afternoon was hoping to make it to that. Follow-up BMP much improved. Shortness of breath improved. Patient responded quicker than expected. A: *Acute hypoxic/hypercapnic respiratory failure: 2/2 chf -on room air this morning while awake *Acute on chronic systolic (45%)/diastolic CHF w/pulmonary edema: -good uop *COPD(not on home O2)/RLD: *LINDSEY: *morbid Obesity: bmi 52 *HTN/HLD: *DM w/Neuropathy: *GERD: *Depression: *Tobacco abuse: P: -lasix , aldactone -cont home mic/bb -Referral to see cardiology Discharge diagnosis: Acute hypoxic hypercapnic respite failure acute on chronic systolic diastol Secondary discharge diagnosis: COPD LINDSEY morbid obesity hypertension diabetes GERD depression tobacco abuse Time Spent with Patient Time attestation: Total time spent providing and/or coordinating discharge services: Time spent: Greater than 30 minutes EXAM Constitutional Vitals: Temp Pulse Resp BP Pulse Ox O2 Del Method O2 Flow Rate 97.3 F 48 L 16 135/71 93 4 10/15/22 08:02 10/15/22 08:02 10/15/22 08:02 10/15/22 08:02 10/15/22 08:02 10/15/22 08:02 10/15/22 06:01 Discharge Data Data Completed and Pending Labs on day of discharge: Labs from last 24 hours 10/15/22 07:49 Sodium 136 Potassium 3.6 Chloride 100 Carbon Dioxide 25 Anion Gap 11.0 BUN 19 Creatinine 1.0 GFR Calculation 84 Glucose 143 H Uric Acid 7.4 Calcium 9.3 Phosphorus 3.9 Magnesium 2.1 Total Bilirubin 0.6 Direct Bilirubin < 0.2 GGT 69 H AST 31 ALT 14 Alkaline Phosphatase 116 Lactate Dehydrogenase 210 NT-Pro-B Natriuret Pep 768.9 H Total Protein 7.1 Albumin 2.9 L Globulin 4.2 H Albumin/Globulin Ratio 0.7 L Triglycerides 110 Discharge Plan Patient/Caregiver Discharge Instructions Activity: increase activity as tolerated Diet: Consistent Carbohydrate Activity Restrictions/Additional Instructions: Referral to see cardiology in 3 to 10 days for heart failure Prescriptions: New spironolactone 25 mg Tablet 25 mg PO DAILY Qty: 30 0RF Continued ezetimibe 10 mg tablet 10 mg PO QDAY buspirone 5 mg tablet 5 mg PO BID fluticasone propion-salmeterol [Advair Diskus] 500-50 mcg/dose blister with device 1 inh INHALATION BID nitroglycerin [Nitrostat] 0.4 mg tablet, sublingual 0.4 mg SUBLINGUAL Q5M PRN (Reason: Shortness Of Breath) Rx Instructions: do not exceed 3 doses per episode albuterol sulfate 90 mcg/actuation HFA aerosol inhaler 2 puff inhalation Q6H PRN (Reason: Shortness of breath) Label Comments: Pt took prior to admit gabapentin 300 mg capsule 300 mg PO BID lisinopril 40 mg tablet 40 mg PO QDAY metoprolol succinate 50 mg tablet extended release 24 hr 25 mg PO QDAY multivitamin Tablet 1 tab PO QDAY omeprazole 20 mg capsule,delayed release(DR/EC) 20 mg PO QDAY allopurinol 300 mg tablet 300 mg PO QDAY atorvastatin 80 mg tablet 80 mg PO QDAY famotidine 20 mg tablet 20 mg PO BID latanoprost 0.005 % drops 1 drp ophthalmic (eye) QDAY potassium chloride 10 mEq tablet extended release 10 meq PO QDAY timolol 0.5 % drops 1 drp ophthalmic (eye) BID metformin 500 mg tablet extended release 24hr 1,000 mg PO BID Cholestyramine Light 4 gram powder 1 ea PO DAILY Victoza 3-Thomas 0.6 mg/0.1 mL (18 mg/3 mL) pen injector 0.6 mg subcut Q2D hydrocodone-acetaminophen 5-325 mg tablet 1 tab PO Q4HP PRN (Reason: Pain) budesonide 3 mg capsule,delayed,extend.release 3 cap PO QDAY sertraline 100 mg tablet 2 tab PO QAM Changed furosemide 20 mg tablet 40 mg PO BID Qty: 30 0RF Follow Up Plan Follow up with: Samira Mancia PA-C [Primary Care Provider] - 10/22/22 10:20 am (Please arrive 15 minutes early) Maxim Edwards MD [Physician] - 10/15/22 3:30 pm Patient Disposition: Home, Self-Care Prognosis: Fair Overall status at discharge: patient is progressing back to baseline Discharge Orders: Discharge Order (Routine); Ordered 10/15/22 Ordered By: Juan Cheung
== END 2022-10-15 15:10 | disposition home or self-care (01) | DRG 189 ==
LOC: ED 22:47 → ICU 10-14 03:28
PROVIDERS: ADMIT Internal Medicine; ATTEND Internal Medicine